=== PATIENT | female | born 1980 | race Caucasian/White ===

== ENCOUNTER 2016-11-04 17:25 | Emergency (ER) | payer OTHER ==
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
[2016-11-04] MEDS ORDERED: IBUPROFEN 600 MG TABLET (FP) PO ONE ×2 (17:34→18:48)
[2016-11-04 17:58] VITALS: BP 138/83; PULSE 82; TEMP 98.1; BMI 23.8
[2016-11-04] MEDS ORDERED: diazePAM 2 MG TABLET PO ONE (19:33)
[2016-11-04] MEDS ORDERED: diazePAM 2 MG TABLET ONE (19:56)
[2016-11-04] MEDS ORDERED: OXYCODONE/APAP 5/325MG COMBO TABLET PO ONE (21:02)
[2016-11-04] MEDS ORDERED: OXYCODONE/APAP 5/325MG COMBO TABLET ONE (21:21)
== END 2016-11-04 23:55 | disposition home or self-care (01) ==
LOC: JER 17:25
DX: M54.2 Cervicalgia (principal); M54.5 Low back pain; V43.52XA Car driver injured in collision with other type car in traffic accident, initial encounter; Y92.481 Parking lot as the place of occurrence of the external cause; Y93.89 Activity, other specified; Y99.8 Other external cause status
CPT/HCPCS: 70450-TC; 71020-TC; 72050-TC; 72100-TC; 72125-TC; 84703; 99282-25